=== PATIENT | female | born 1990 | race Caucasian/White ===

== ENCOUNTER 2017-06-18 17:58 | Emergency (ER) | payer MEDICAID, OTHER ==
[2017-06-18 18:21] VITALS: BP 96/59; PULSE 88; RESP 18; TEMP 98.2; O2SAT 98
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
== END 2017-06-18 20:22 | disposition home or self-care (01) ==
LOC: CED 17:58
DX: S76.012A Strain of muscle, fascia and tendon of left hip, initial encounter (principal); S80.02XA Contusion of left knee, initial encounter; Z87.891 Personal history of nicotine dependence; V00.321A Fall from snow-skis, initial encounter; Y99.8 Other external cause status; Y93.23 Activity, snow (alpine) (downhill) skiing, snowboarding, sledding, tobogganing and snow tubing
CPT/HCPCS: 73502-PO; 73562-PO; L1830